=== PATIENT | female | born 1965 | race American Indian/Alaskan Native ===

== ENCOUNTER 2016-05-06 22:19 | Emergency (ER) | payer SELFPAY ==
--- NOTE | 2016-05-07 03:35 | Emergency Department Report ---
Chief Complaint: Back Pain/Injury Stated Complaint: BACK PAIN Time Seen by Provider: 05/07/16 03:30 - HPI History of Present Illness: Patient here reported back pain 4 years. She says she's been having back pain on and off. Denies any urinary burning frequency or urgency. Denies any nausea or vomiting. Pain is 10 out of 10. Denies any fever or chills. Denies any loss of bowel or bladder function. Denies any injury to back. Patient says she is homeless and she walks a lot and she's been having back pain and they usually give her Motrin. Denies any fever or chills. Pain feels achy in her lower back. - ROS Review of Systems: All systems are negative unless stated in HPI above. - Exam Vital Signs: Vital Signs 05/06/16 23:23 Temperature 98.3 F Pulse Rate 71 Respiratory 16 Rate Blood Pressure 100/75 O2 Sat by Pulse 100 Oximetry Physical Exam: General: This is a 50-year-old female well-nourished well-developed in no acute distress. Head: Normocephalic, atraumatic Neck: Full range of motion, no cervical adenopathy. no cspine tendeness. Eyes: Bilateral pupils equal and reactive to light. Bilateral sclera and conjunctiva without injection. Bilateral EOM intact. Lungs: Clear to auscultate bilaterally. No rhonchi wheezes or rales. Normal work of breathing. CV: S1, S2. Regular rate. Regular rhythm. Abdomen: Nontender to palpate in all quadrants. No guarding or rebound tenderness. Normal bowel sounds in all quadrants. No CVA tenderness. Extremity: No clubbing, cyanosis or edema. +2 pedal pulses, no deformity. Skin: Clean, dry and intact. No rashes or lesions. Psych: Normal mood and behavior.Back: Negative SLR bilaterally, no vertebral or paraspinal tenderness. Patient able to ambulate without any difficulties. No saddle anesthesia. Neurologic: GCS at 15, alert and oriented 3, speech is normal and fluid. Negative pronator drift. Normal reflexes. no Facial drooping. Gait is normal and bilateral hand manager software development strong and equal. No motor or sensory deficit. MSE screening note: Focused history and physical exam performed. Due to findings the following was ordered:TBD ED Disposition for MSE Condition: Stable
[2016-05-07 03:59] VITALS: BP 132/76
== END 2016-05-07 03:58 | disposition left against medical advice (07) ==
LOC: ED 22:19
DX: M54.9 Dorsalgia, unspecified (principal); Z53.21 Procedure and treatment not carried out due to patient leaving prior to being seen by health care provider

== ENCOUNTER 2016-08-25 22:09 | Emergency (ER) | payer SELFPAY ==
--- NOTE | 2016-08-26 05:05 | Emergency Department Report ---
ED General Adult HPI - General Chief complaint: Extremity Injury, Upper Stated complaint: BOTH NUMBNESS/VAG ITCHING Time Seen by Provider: 08/26/16 04:35 Source: patient, family Mode of arrival: Ambulatory Limitations: No Limitations - History of Present Illness Initial comments: Patient reported and that she has numbness and swelling to both hands and also complaining infection in her vaginal area. She reports that she is having itching and burning in her vaginal area. Denies any urinary burning frequency or urgency. Patient reports that she has a history of asthma. She states that she is not sexually active and she is in menopause. She says she is not worried about STD but she wouldn't mind being checked. She said she will wait for testing before treated. Denies any abdominal or back pain. Patient was seen at [facility] last week for complaint of numbness and swelling to both hands she says she went there also because she was having chest pain and they worked her up and did a CT scan of her neck, had and a cardiac stress test which came back normal. She said they gave her different information on community clinics to follow up with but she didn't get to go. Patient said she is homeless with her daughter. She said her other daughter lives in [facility] and he usually goes to the daughter's work place to sit around. Reports bilateral hand a can at 1 out of 10. She denies any injuries. She said this has been going on for 2 years. Denies any vaginal bleeding or discharge. Denies any chest pain or shortness of breath. The headache or neck pain. Over- the-counter pain medicine taken per patient. MD Complaint: bilateral hand swelling and numbness and vaginal itching Onset/Timin -: year(s) Location: left, right, upper extremity Radiation: non-radiation Severity scale (0 -10): 1 Quality: aching Consistency: intermittent Improves with: none Worsens with: none Associated Symptoms: denies: confusion, chest pain, cough, diaphoresis, fever/ chills, headaches, loss of appetite, malaise, nausea/vomiting, rash, seizure, shortness of breath, syncope, weakness Treatments Prior to Arrival: NSAID - Related Data Previous Rx's Medication Instructions Recorded Last Taken Type Fluconazole [Diflucan TAB] 100 mg PO QDAY #2 tablet 08/26/16 Unknown Rx metroNIDAZOLE [Flagyl] 500 mg PO Q12HR #14 tab 08/26/16 Unknown Rx Allergies Allergy/AdvReac Type Severity Reaction Status Date / Time No Known Allergies Allergy Verified 12/01/15 04:19 ED Review of Systems ROS: Stated complaint: BOTH NUMBNESS/VAG ITCHING Other details as noted in HPI Comment: All other systems reviewed and negative Constitutional: denies: chills, fever Eyes: denies: vision change ENT: denies: throat pain, congestion Respiratory: no symptoms reported Cardiovascular: denies: chest pain, palpitations, edema, syncope Gastrointestinal: denies: abdominal pain, nausea, vomiting, diarrhea, constipation Genitourinary: other (vaginal itch and). denies: urgency, dysuria, frequency, hematuria, discharge Skin: denies: rash Neurological: numbness (Bilateral hand). denies: headache, paresthesias, abnormal gait, vertigo ED Past Medical Hx - Past Medical History Previous Medical History?: Yes Hx Asthma: Yes Additional medical history: Numbness and swelling to both hands on and off for 2 years. - Surgical History Past Surgical History?: Yes Additional Surgical History: C-Sec x 1 - Family History Family history: hypertension - Social History Smoking Status: Never Smoker Substance Use Type: None Other Social History: she is homeless - Medications Home Medications: Home Medications Medication Instructions Recorded Confirmed Last Taken Type Fluconazole [Diflucan TAB] 100 mg PO QDAY #2 tablet 08/26/16 Unknown Rx metroNIDAZOLE [Flagyl] 500 mg PO Q12HR #14 tab 08/26/16 Unknown Rx ED Physical Exam - General Limitations: No Limitations General appearance: alert, in no apparent distress - Head Head exam: Present: atraumatic, normocephalic, normal inspection - Eye Eye exam: Present: normal appearance, PERRL, EOMI. Absent: periorbital swelling , periorbital tenderness Pupils: Present: normal accommodation - ENT ENT exam: Present: normal exam - Neck Neck exam: Present: normal inspection, full ROM, other (full range of motion without any C-spine tenderness). Absent: tenderness, meningismus, lymphadenopathy - Respiratory Respiratory exam: Present: normal lung sounds bilaterally. Absent: respiratory distress, chest wall tenderness - Cardiovascular Cardiovascular Exam: Present: regular rate, normal rhythm, normal heart sounds - GI/Abdominal GI/Abdominal exam: Present: soft, normal bowel sounds. Absent: distended, tenderness, guarding, rebound, rigid - External exam: Present: normal external exam. Absent: erythema, swelling, lesions, lacerations, ecchymosis, bleeding Speculum exam: Present: vaginal discharge (skin vaginal discharge.). Absent: erythema, cervical discharge, vaginal bleeding, foreign body, tissue, laceration Bi-manual exam: Present: normal bi-manual exam. Absent: cervical motion tendernes, adnexal tenderness, adnexal mass, uterine enlargement, uterine tenderness - Extremities Exam Extremities exam: Present: normal inspection, full ROM, normal capillary refill , other (both hands without any swelling and nontender to palpate. Pulses are 2 +. No neurovascular compromise. No signs of tendon injury. Patient with good color, sensation, movement and temperature to extremities. Capillary refill is less then 3 seconds. Patient without motor or sensory deficit to extremities. Joints are normal without any deformities. No swelling or redness or tenderness to joints. Bilateral hand molasses preparer is strong and equal.). Absent: tenderness, pedal edema, joint swelling, calf tenderness - Back Exam Back exam: Present: normal inspection, full ROM. Absent: tenderness, CVA tenderness (R), CVA tenderness (L), muscle spasm, paraspinal tenderness, vertebral tenderness, rash noted - Neurological Exam Neurological exam: Present: alert, oriented X3, normal gait, reflexes normal. Absent: motor sensory deficit - Psychiatric Psychiatric exam: Present: normal affect, normal mood - Skin Skin exam: Present: warm, dry, intact, normal color. Absent: rash ED Course Vital Signs 08/25/16 08/26/16 22:36 05:42 Temperature 98.4 F Pulse Rate 80 84 Respiratory 18 18 Rate Blood Pressure 128/95 Blood Pressure 126/86 [Right] O2 Sat by Pulse 100 99 Oximetry - Reevaluation(s) Reevaluation #1: 08/26/16 07:01 Vision stable throughout ED stay. Pelvic exam done see lab section for details. ED Medical Decision Making - Lab Data Lab Results 08/26/16 Range/Units 04:26 Urine Color Yellow (Yellow) Urine Turbidity Clear (Clear) Urine pH 5.0 (5.0-7.0) Ur Specific [place] 1.023 (1.003-1.030) Urine Protein <15 mg/dl (Negative) mg/dL Urine Glucose (UA) Neg (Negative) mg/dL Urine Ketones Neg (Negative) mg/dL Urine Blood Sm (Negative) Urine Nitrite Neg (Negative) Urine Bilirubin Neg (Negative) Urine Urobilinogen < 2.0 (<2.0) mg/dL Ur Leukocyte Esterase Neg (Negative) Urine WBC (Auto) 1.0 (0.0-6.0) /HPF Urine RBC (Auto) 3.0 (0.0-6.0) /HPF U Epithel Cells (Auto) 2.0 (0-13.0) /HPF Urine Bacteria (Auto) 1+ (Negative) /HPF Hyaline Casts 1 /LPF Urine Mucus Few /HPF Urine culture pending Wet Preo: Less than 20% clue cells, no Trichomonas and mild disease. CHL:Pending - Medical Decision Making ED course: here complaining of bilateral hand numbness that she's had over 2 years and she was worked up at [facility] last week to include CT scan of the head and neck, chest x-ray, cardiac stress test and she said all lab work and diagnostic tests were negative. Patient is also complaining of vaginal itching and wet prep revealed less than 20% clue cells and mild diffuse without any Trichomonas. The patient her test results and instructed her that E and chlamydia tests will not be back before 5 days and she will be notified. I also discussed with her that if she is concerned about STDs and she says she is not and she'll wait for the test results. I discussed with patient that she' s been a need to follow-up and since she mostly stays in [facility] it better she follows up at [facility] [place]. She just the bus and came to this hospital. I discussed diagnosis and treatment plan with her and she voiced understanding. Patient discharged home with prescription for Flagyl, Diflucan on and Motrin. Critical care attestation.: If time is entered above; I have spent that time in minutes in the direct care of this critically ill patient, excluding procedure time. ED Disposition Clinical Impression: Arthralgia of both hands, Numbness in both hands, Bacterial vaginosis, Yeast infection Disposition: DISCHARGED TO HOME OR SELFCARE Is pt being admited?: No Does the pt Need Aspirin: No Condition: Stable Instructions: Bacterial Vaginosis (ED), Vulvovaginal Candidiasis (ED), Arthralgia (ED), Paresthesia (ED) Additional Instructions: Please follow-up as instructed. Take medication as instructed. Prescriptions: Fluconazole [Diflucan TAB] 100 mg PO QDAY #2 tablet metroNIDAZOLE [Flagyl] 500 mg PO Q12HR #14 tab Referrals: [facility] [Outside] - 2-3 Days Forms: STI Treatment and Prevention, Accompanied Note
[2016-08-26 05:08] LABS: Bacteria,Urine 1+ /HPF (Negative); Bilirubin,Urine NEG (Negative); Blood,Urine SM (Negative); Ketones,Urine NEG (Negative); Leukocyte Esterase,Urine NEG (Negative); Mucus,Urine FEW /HPF; Nitrite,Urine NEG (Negative); Protein,Urine <15 mg/dL mg/dL (Negative); Urobilinogen,Urine < 2.0 mg/dL (<2.0)
[2016-08-26 05:42] VITALS: BP 126/86
== END 2016-08-26 07:18 | disposition home or self-care (01) ==
LOC: ED 22:09
DX: M79.642 Pain in left hand (principal); M79.641 Pain in right hand; R22.0 Localized swelling, mass and lump, head; N76.0 Acute vaginitis; B37.89 Other sites of candidiasis; J45.909 Unspecified asthma, uncomplicated
CPT/HCPCS: 81001; 87086; 87210; 87591